=== PATIENT | female | born 1955 | race African-American/Black ===

== ENCOUNTER 2017-01-29 20:20 | Emergency (ER) | payer OTHER ==
[~2017-01-29] VITALS: Ht 160 cm; Wt 95.0 kg
[~2017-01-29 20:20] MED LIST: ALBU0.08 NEB; ASPI1TAB69 PO; CARV12.52 PO; CIPR-9 PO; COLA100C3 PO; FLUT1SPR5 EACH NARE; FURO1TAB62 PO; HYDR-3533 PO; LOSA50TA PO; METF500 PO; METR-1 PO; MULT1TAB84 PO; PRAV20TA2 PO; PROT40TA PO; SENN8.6C PO; SPIR25TA PO; VENL75TA PO
[2017-01-29 20:46] VITALS: BP 130/60; PULSE 60; RESP 18; TEMP 97.5; O2SAT 99
[2017-01-29] MEDS ORDERED: SODIUM CHLORIDE 0.9% FLUSH 10 ML FLUSH IVF PRN (21:00)
--- NOTE | 2017-01-29 21:05 | PD ---
HPI Chief Complaint: Chest Pain Time Seen by Provider: 20:46 Travel History International Travel<30 days: No Contact w/Intl Traveler<30days: No Traveled to known affect area: No History of Present Illness HPI This is a 62-year-old female who has a history of congestive heart failure due to an infectious etiology presents to the emergency department with fatigue and lightheadedness. She has a home nurse come to her house because she has her wound VAC changed periodically and today she was noted to have a pulse of 44. Her nurse reports that she contacted Dr. Fraire who was on-call for Dr. Sorensen her multimedia authoring specialist and he told her to come to the emergency department. She's been in contact with cardiology because over the past several days she's been a little more short of breath, worse with exertion, improved with rest. She increased her Lasix from 20 mg twice a day to 30 mg twice a day and she thinks this is been helping. She also reports that she's had a little bit of left-sided chest discomfort. PFSH Past Medical History Hx Anticoagulant Therapy: Yes (ASA) Arthritis: Yes Asthma: Yes Depression: Yes Cancer: No Cardiovascular Problems: Yes (CHF) High Cholesterol: Yes Congestive Heart Failure: Yes Diabetes: Yes (METFORMIN) Patient Takes Glucophage: Yes Diminished Hearing: No Endocrine: No Fibromyalgia: Yes Gastrointestinal Disorders: Yes (GERD) GERD: Yes Genitourinary: Yes (FREQUENCY, LEAKING) Hiatal Hernia: No Hypertension: Yes Immune Disorder: Yes (FIBROMYALGIA) Medical other: Yes (FATTY LIVER, ENLARGED SPLEEN) Musculoskeletal: Yes (ARTHRITIS, NECK AND BACK, FIBROMYALGIA) Neurologic: No Psychiatric: Yes (DEPRESSION) Reproductive: No Respiratory: Yes (ASTHMA) Immunizations Current: Yes Migraines: Yes Pneumonia: Yes Shingles: Yes Thyroid Disease: No ?: Not Menopausal: Yes : 5 Para: 3 Miscarriage: 2 Ectopic : Yes Dilation and Curettage (D&C): Yes Past Surgical History Abdominal Surgery: Yes (ABDOMINAL INCISIONAL HERNIA REPAIR, TUMMY TUCK) AICD: No Body Medical Devices: TITANIUM IN NECK AND RT SHOULDER Cardiac Surgery: No Ear Surgery: No Endocrine Surgery: No Eye Surgery: No Genitourinary Surgery: Yes (BLADDER SURGERY) Gynecologic Surgery: Yes (PARTIAL HYSTERECTOMY, (ECTOPIC )RUPTURED FALLOPIAN TUBE) Hysterectomy: Yes Joint Replacement: No Oral Surgery: Yes (ADENOIDECTOMY) Pacemaker: No Thoracic Surgery: No Tonsillectomy: Yes (ADENOIDECTOMY) Other Surgery: Yes (hernia repair, nasal surgery, spinal surgery) Social History Alcohol Use: Yes (occaasional) Tobacco Use: No (QUIT: 1992) Substance Use: No Allergies-Medications (Allergen,Severity, Reaction): Coded Allergies: Lisinopril (Verified Allergy, Severe, Cough, 06/20/16) Simvastatin (Verified Allergy, Severe, MUSCLE PAIN, 06/20/16) Ultram (Verified Adverse Reaction, Mild, N/V, 06/20/16) *MDRO Multi-Drug Resistant Organism (Verified Adverse Reaction, Unknown, 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 ESBL Klebsiella pneumoniae Reported Meds & Prescriptions Reported Meds & Active Scripts Active Lortab (Hydrocodone-Acetaminophen) 5-325 Mg Tab 1 Tab PO Q6H PRN Reported Senna (Sennosides) 8.8 Mg/5 Ml Syp 1 Tab PO HS PRN Once Daily (Multivitamin) 1 Each Tablet 1 Tab PO DAILY Aspirin 81 (Aspirin) 81 Mg Tabdr 81 Mg PO DAILY Fenofibrate 54 Mg Tab 54 Mg PO DAILY Lorazepam 0.5 Mg Tab 0.5 Mg PO Q6H PRN Albuterol Neb (Albuterol Sulfate) 2.5 Mg/3 Ml Neb 2.5 Mg NEB Q4HR NEB PRN Flonase Nasal [place] (Fluticasone Nasal [place]) 50 Mcg/Act [place] 50 Mcg EACH NARE BID Effexor (Venlafaxine HCl) 75 Mg Tab 75 Mg PO DAILY Spironolactone 25 Mg Tab 25 Mg PO BIDPC Pravastatin 20 Mg Tab 20 Mg PO HS Protonix (Pantoprazole Sodium) 40 Mg Tab 40 Mg PO DAILY Glucophage (Metformin HCl) 500 Mg Tab 500 Mg PO BIDPC With meals Losartan (Losartan Potassium) 50 Mg Tab 50 Mg PO DAILY Lasix (Furosemide) 20 Mg Tab 20 Mg PO BID Carvedilol 12.5 Mg Tab 12.5 Mg PO BID Review of Systems Except as stated in HPI: all other systems reviewed are Neg Physical Exam Narrative GENERAL:Well appearing, no acute distress SKIN: Focused skin assessment warm and dry. HEAD: Atraumatic. Normocephalic. EYES: Pupils equal and round. No injection or drainage. ENT: Moist mucous membranes NECK: Trachea midline. CARDIOVASCULAR: Regular rate and rhythm. No murmur appreciated. Trace pitting edema bilaterally. RESPIRATORY: Rales in the right lower lung base GASTROINTESTINAL: Wound VAC on the midline abdomen appears to be well healing MUSCULOSKELETAL: No obvious deformities. NEUROLOGICAL: Awake and alert. No obvious cranial nerve deficits. Moving all extremities. PSYCHIATRIC: Appropriate mood and affect; insight and judgment normal. Data Data Last Documented VS Vital Signs Date Time Temp Pulse Resp B/P Pulse Ox O2 Delivery O2 Flow Rate FiO2 01/29/17 20:49 60 20 01/29/17 20:46 97.5 130/60 99 Orders Electrocardiogram (01/29/17 20:56) B-Type Natriuretic Peptide (01/29/17 20:56) Complete Blood Count With Diff (01/29/17 20:56) Comprehensive Metabolic Panel (01/29/17 20:56) Prothrombin Time / Inr (Pt) (01/29/17 20:56) Act Partial Throm Time (Ptt) (01/29/17 20:56) Troponin I (01/29/17 20:56) Chest, Single Ap (01/29/17 20:56) Ecg Monitoring (01/29/17 20:56) Bilateral Bp Monitoring (01/29/17 20:56) Iv Access Insert/Monitor (01/29/17 20:56) Oximetry (01/29/17 20:56) Oxygen Administration (01/29/17 20:56) Sodium Chloride 0.9% Flush (Ns Flush) (01/29/17 21:00) Labs Laboratory Tests Test 01/29/17 21:15 White Blood Count 8.0 TH/MM3 Red Blood Count 3.24 MIL/MM3 Hemoglobin 8.9 GM/DL Hematocrit 26.7 % Mean Corpuscular Volume 82.4 FL Mean Corpuscular Hemoglobin 27.5 PG Mean Corpuscular Hemoglobin 33.3 % Concent Red Cell Distribution Width 16.4 % Platelet Count 341 TH/MM3 Mean Platelet Volume 9.1 FL Neutrophils (%) (Auto) 50.9 % Lymphocytes (%) (Auto) 35.2 % Monocytes (%) (Auto) 8.3 % Eosinophils (%) (Auto) 4.5 % Basophils (%) (Auto) 1.1 % Neutrophils # (Auto) 4.1 TH/MM3 Lymphocytes # (Auto) 2.8 TH/MM3 Monocytes # (Auto) 0.7 TH/MM3 Eosinophils # (Auto) 0.4 TH/MM3 Basophils # (Auto) 0.1 TH/MM3 CBC Comment DIFF FINAL Differential Comment Prothrombin Time 10.3 SEC Prothromb Time International 0.9 RATIO Ratio Activated Partial 30.6 SEC Thromboplast Time Sodium Level 135 MEQ/L Potassium Level 3.4 MEQ/L Chloride Level 99 MEQ/L Carbon Dioxide Level 28.5 MEQ/L Anion Gap 8 MEQ/L Blood Urea Nitrogen 23 MG/DL Creatinine 1.13 MG/DL Estimat Glomerular Filtration 59 ML/MIN Rate Random Glucose 106 MG/DL Calcium Level 8.9 MG/DL Total Bilirubin 0.2 MG/DL Aspartate Amino Transf 11 U/L (AST/SGOT) Alanine Aminotransferase 16 U/L (ALT/SGPT) Alkaline Phosphatase 97 U/L Troponin I LESS THAN 0.02 NG/ML B-Type Natriuretic Peptide 67 PG/ML Total Protein 7.1 GM/DL Albumin 3.3 GM/DL MDM Medical Decision Making Medical Screen Exam Complete: Yes Emergency Medical Condition: Yes Interpretation(s) afebrile, no tachycardia, normotensive anemia similar to prior renal insufficiency troponin normal bnp 67 Last 24 hours Impressions Chest X-Ray 01/29/172055 Signed Impressions: Service Date/Time: Sunday, January 29, 2017 21:08 - CONCLUSION: No acute disease. Tyron Arriola MD FACR Differential Diagnosis Arrhythmia, medication side effect, congestive heart failure, myocardial infarction Narrative Course This is a 62-year-old female who presents to the emergency department with concern because her heart rate random low today in the 40s and she was having some lightheadedness and dizziness. She is placed on a monitor and an IV was established. Labs demonstrate anemia which she suffered from in the past and may be the etiology of her symptoms. She is received iron injections in the past from her primary care physician and she will follow-up with them regarding this. She has a normal BNP and her chest x-rays reassuring. No evidence of congestive heart failure. Her EKG is nonischemic. She is sinus bradycardia in the 40s to 60s. She has a normal blood pressure. I think this is likely medication related and I advised her to decrease her dose of Coreg which may assist and elevating her heart rate some. I think she is safe for discharge and follow-up with her multimedia authoring specialist. Diagnosis Primary Impression: Bradycardia Additional Impression: Anemia Qualified Code: D50.9 - Iron deficiency anemia, unspecified iron deficiency anemia type Patient Instructions: General Instructions Additional Instructions: If you develop severe chest pain, shortness of breath, sweating, lightheadedness , dizziness or difficulty breathing return to the emergency department immediately. Followup with your primary care physician in 2-3 days if your symptoms are not resolved. Decrease your dose of Coreg until you see your multimedia authoring specialist. Med/Other Pt SpecificInfo: Existing Med Changed Disposition: 01 DISCHARGE HOME Condition: Stable Pretty Pardo MD Jan 29, 2017 21:05
--- NOTE | 2017-01-29 21:29 | RADRPT ---
EXAM DATE/TIME: 01/29/2017 21:08 [facility] COMPARISON: CHEST SINGLE AP, September 19, 2015, 5:33. EXTERNAL COMPARISON : [facility] INDICATIONS : Chest pain. Bradycardia. MEDICAL HISTORY : Congestive heart failure. Hypercholesterolemia. Hypertension. SURGICAL HISTORY : Fusion, cervical. ENCOUNTER: Initial ACUITY: 1 month PAIN SCORE: 1/10 LOCATION: Bilateral chest FINDINGS: A single view of the chest demonstrates the lungs to be symmetrically aerated without evidence of mas s, infiltrate or effusion. The cardiomediastinal contours are unremarkable. Osseous structures are intact. CONCLUSION: No acute disease. Tyron Arriola MD FACR on January 29, 2017 at 21:28 Board Certified Radiologist. This report was verified electronically.
[2017-01-29 21:47] LABS: AUTOMATED NEUTROPHIL # 4.1 TH/MM3 (1.8-7.7); BASOPHIL # 0.1 TH/MM3 (0-0.2); BASOPHIL % 1.1 % (0.0-2.0); EOSINOPHIL # 0.4 TH/MM3 (0-0.4); EOSINOPHIL % 4.5 % (0.0-4.0); HEMATOCRIT 26.7 % (35.0-46.0); HEMO FLAGS DIFF FINAL; LYMPH % 35.2 % (9.0-44.0); LYMPHOCYTE # 2.8 TH/MM3 (1.0-4.8); MEAN CELL VOLUME 82.4 FL (80.0-100.0); MEAN CORPUSCULAR HEMOGLOBIN 27.5 PG (27.0-34.0); MEAN CORPUSCULAR HGB CONC 33.3 % (32.0-36.0); MONO % 8.3 % (0.0-8.0); NEUT % 50.9 % (16.0-70.0); PLATELET COUNT 341 TH/MM3 (150-450); RED BLOOD COUNT 3.24 MIL/MM3 (4.00-5.30); RED CELL DISTRIBUTION WIDTH 16.4 % (11.6-17.2)
[2017-01-29] MEDS ORDERED: LORA-373 PO (21:58)
[2017-01-29] MEDS ORDERED: FENO54TA PO (21:58)
[2017-01-29] MEDS ORDERED: ONCETAB7 PO (21:58)
[2017-01-29] MEDS ORDERED: ASPI-110 PO (21:58)
[2017-01-29] MEDS ORDERED: SENN8.8S7 PO (21:58)
[2017-01-29 22:07] LABS: APTT (PATIENT) 30.6 SEC (24.3-30.1); INTERNATIONAL NORMALIZED RATIO 0.9 RATIO; PROTHROMBIN TIME - PATIENT 10.3 SEC (9.8-11.6)
[2017-01-29 22:15] LABS: ANION GAP 8 MEQ/L (5-15); AST (GOT) 11 U/L (15-37); BICARBONATE 28.5 MEQ/L (21.0-32.0); BLOOD UREA NITROGEN 23 MG/DL (7-18); CHLORIDE 99 MEQ/L (98-107); GLOMERULAR FILTRATION RATE 59 ML/MIN (>89); POTASSIUM 3.4 MEQ/L (3.5-5.1); SODIUM (NA) 135 MEQ/L (136-145)
[2017-01-29 22:16] LABS: ALT (GPT) 16 U/L (10-53)
--- NOTE | 2017-01-29 22:16 | EKG ---
Date Performed: 01/29/2017 Time Performed: 21:03:25 PTAGE: 62 years EKG: SINUS BRADYCARDIA BORDERLINE ECG PREVIOUS TRACING : 02/27/2016 06.56 No significant change from previous tracing noted. DOCTOR: Delonte Cardoza Interpretating Date/Time 01/29/2017 22:15:24
[2017-01-29 22:20] LABS: ALKALINE PHOSPHATASE 97 U/L (45-117); TOTAL BILIRUBIN ADULT 0.2 MG/DL (0.2-1.0)
== END 2017-01-30 00:34 | disposition home or self-care (01) ==
LOC: NEPE 20:20
DX: R00.1 Bradycardia, unspecified (principal); D64.9 Anemia, unspecified; R42 Dizziness and giddiness; M19.90 Unspecified osteoarthritis, unspecified site; J45.909 Unspecified asthma, uncomplicated; I50.9 Heart failure, unspecified; E11.9 Type 2 diabetes mellitus without complications; I10 Essential (primary) hypertension; K21.9 Gastro-esophageal reflux disease without esophagitis
CPT/HCPCS: 71010; 80053; 83880; 84484; 85025; 85610; 85730; 93005; 99284